=== PATIENT | female | born 1965 | race Two or more races ===

== ENCOUNTER 2024-06-29 20:41 | Emergency (ER) | payer SELFPAY ==
[~2024-06-29] VITALS: Ht 157.5 cm; Wt 82.0 kg
[2024-06-29 21:02] VITALS: BP 131/75; TEMP 36.6; O2SAT 100
[2024-06-29 21:03] VITALS: PULSE 90; RESP 18; O2SAT 98
== END 2024-06-29 23:36 | disposition home or self-care (01) ==
LOC: ER 20:41
DX: L97.329 Non-pressure chronic ulcer of left ankle with unspecified severity (principal); E11.9 Type 2 diabetes mellitus without complications; Z88.2 Allergy status to sulfonamides; Z98.890 Other specified postprocedural states
CPT/HCPCS: 99281